=== PATIENT | male | born 1990 | race Caucasian/White ===

== ENCOUNTER 2016-09-14 16:19 | Emergency (ER) | payer SELFPAY ==
[2016-09-14] MEDS ORDERED: IBUPROFEN200 M2 PO (16:27)
[2016-09-14] MEDS ORDERED: TYLENOL EXTRA500 M1 PO (16:27)
[2016-09-14] MEDS ORDERED: NORCO 5/3251 TAB PO (16:44)
[2016-09-14] MEDS ORDERED: PENICILLIN V P500 M1 PO (16:44)
[2016-09-14] MEDS ORDERED: IBUPROFEN600 M1 PO (16:44)
== END 2016-09-14 16:52 ==
LOC: EDMED 16:19
DX: K02.9 Dental caries, unspecified (principal); F17.200 Nicotine dependence, unspecified, uncomplicated